=== PATIENT | male | born 1940 | race Caucasian/White ===

== ENCOUNTER → 2020-04-12 | Outpatient (CLI) | payer MEDICARE, BC ==
[~2020-04-12] MED LIST: CIPROFLOXACIN500 M1 PO; COLCRYS0.6 MG PO; CORGARD40 MG PO; DURAGESIC 12 M1 EACH TOP; PREDNISONE5 M1 PO; SYNTHROID25 MCG PO; SYNTHROID75 MCG PO; WELCHOL625 MG PO
== END ==
LOC: NM 08:59
DX: C61 Malignant neoplasm of prostate (principal); C79.51 Secondary malignant neoplasm of bone
CPT/HCPCS: 78306; A9503

== ENCOUNTER → 2020-04-26 | Outpatient (CLI) | payer MEDICARE, BC | LOC: CT 08:12 | DX: C61 Malignant neoplasm of prostate (principal); C79.51 Secondary malignant neoplasm of bone; N28.89 Other specified disorders of kidney and ureter; R91.8 Other nonspecific abnormal finding of lung field | CPT/HCPCS: 71260; Q9967 ==

== ENCOUNTER → 2020-07-13 | Outpatient (CLI) | payer MEDICARE, BC | LOC: CT 09:24 | DX: C61 Malignant neoplasm of prostate (principal); C79.51 Secondary malignant neoplasm of bone; N28.89 Other specified disorders of kidney and ureter; R91.1 Solitary pulmonary nodule | CPT/HCPCS: 71260; Q9967 ==

== ENCOUNTER → 2020-07-18 | Outpatient (CLI) | payer MEDICARE, BC | LOC: NM 08:00 | DX: C61 Malignant neoplasm of prostate (principal); C79.51 Secondary malignant neoplasm of bone | CPT/HCPCS: 78306; A9503 ==

== ENCOUNTER → 2020-12-06 | Outpatient (CLI) | payer MEDICARE, BC ==
[~2020-12-06] VITALS: Ht 177.8 cm; Wt 95.3 kg
== END ==
LOC: OPSV 08:30
DX: D64.9 Anemia, unspecified (principal)
CPT/HCPCS: 36430; 96375; J1940

== ENCOUNTER → 2020-12-15 | Outpatient (CLI) | payer MEDICARE, BC | LOC: NM 11-08 08:10 | DX: C61 Malignant neoplasm of prostate (principal); C79.51 Secondary malignant neoplasm of bone | CPT/HCPCS: 78306; A9503 ==

== ENCOUNTER → 2021-01-02 | Outpatient (CLI) | payer MEDICARE, BC | LOC: LAB 15:00 | DX: C61 Malignant neoplasm of prostate (principal); D64.9 Anemia, unspecified | CPT/HCPCS: 86850; 86900; 86901; 86920; J7050; P9016 ==

== ENCOUNTER → 2021-01-03 | Outpatient (CLI) | payer MEDICARE, BC ==
[~2021-01-03] VITALS: Ht 177.8 cm; Wt 95.3 kg
== END ==
LOC: OPSV 08:40
DX: C61 Malignant neoplasm of prostate (principal); D64.9 Anemia, unspecified
CPT/HCPCS: 36430; J1642; J1940; J7050; P9016

== ENCOUNTER → 2021-01-23 | Outpatient (CLI) | payer MEDICARE, BC | LOC: LAB 13:27 | DX: D50.9 Iron deficiency anemia, unspecified (principal) | CPT/HCPCS: 36415; 86850; 86870; 86900; 86901; 86920; 86922; P9016 ==

== ENCOUNTER 2021-02-03 03:04 | Emergency (ER) | payer MEDICARE, BC ==
[2021-02-03 04:00] LABS: HEMOGLOBIN 11.7 gm/dl (14.0-17.5); RED BLOOD COUNT 3.78 M/UL (4.20-5.50)
[2021-02-03 04:27] LABS: BUN/CREATININE RATIO 25 (0-10)
[2021-02-04] MEDS ORDERED: MORPHINE S20 MG/5 ML PO (19:39)
[2021-02-04] MEDS ORDERED: ROXANOL SO10 MG/5 ML PO (19:59)
== END 2021-02-03 06:40 | disposition home or self-care (01) ==
LOC: ER1 03:04
PROVIDERS: Family Medicine
DX: R06.00 Dyspnea, unspecified (principal); K21.9 Gastro-esophageal reflux disease without esophagitis; D69.6 Thrombocytopenia, unspecified; R91.1 Solitary pulmonary nodule; C79.51 Secondary malignant neoplasm of bone; I10 Essential (primary) hypertension
CPT/HCPCS: 71045; 80053; 82550; 82553; 83874; 83880; 84484; 85025; 85379; 93005; 99285; Q9967

== ENCOUNTER 2021-02-04 15:24 | Emergency (ER) | payer MEDICARE, BC ==
[2021-02-04 17:08] LABS: HEMOGLOBIN 11.1 gm/dl (14.0-17.5); RED BLOOD COUNT 3.6 M/UL (4.20-5.50); WHITE BLOOD COUNT 4.7 K/UL (4.5-11.0)
[2021-02-04 17:29] LABS: BUN/CREATININE RATIO 40 (0-10)
[2021-02-04] MEDS ORDERED: MORPHINE S20 MG/5 ML PO (19:39)
[2021-02-04] MEDS ORDERED: ROXANOL SO10 MG/5 ML PO (19:59)
== END 2021-02-04 20:25 | disposition home or self-care (01) ==
LOC: ER1 15:24
PROVIDERS: Student in an Organized Health Care Education/Training Program
DX: C79.51 Secondary malignant neoplasm of bone (principal); Z85.46 Personal history of malignant neoplasm of prostate; Z87.19 Personal history of other diseases of the digestive system
CPT/HCPCS: 80053; 81001; 85025; 93005; 96374; 96375; 96376; 99284; J1642; J2270; J2405; Q9967

== ENCOUNTER 2021-02-07 08:14 | Emergency (ER) | payer MEDICARE, BC ==
[~2021-02-07 08:14] MED LIST changes: +MORPHINE S20 MG/5 ML PO; +ROXANOL SO10 MG/5 ML PO
[2021-02-07 09:11] LABS: RED BLOOD COUNT 3.25 M/UL (4.20-5.50); WHITE BLOOD COUNT 4.2 K/UL (4.5-11.0)
[2021-02-07 09:47] LABS: BUN/CREATININE RATIO 35 (0-10)
== END 2021-02-07 13:22 | disposition short-term general hospital (02) ==
LOC: ER1 08:14
PROVIDERS: Emergency Medicine
DX: T78.40XA Allergy, unspecified, initial encounter (principal); D64.9 Anemia, unspecified; E87.1 Hypo-osmolality and hyponatremia; D69.6 Thrombocytopenia, unspecified; Z85.46 Personal history of malignant neoplasm of prostate; Z20.822 Contact with and (suspected) exposure to COVID-19; E83.51 Hypocalcemia; R20.0 Anesthesia of skin
CPT/HCPCS: 31500; 36430; 51702; 70450; 71045; 73030; 80053; 82550; 82553; 83605; 83874; 84484; 85025; 86900; 86901; 87040; 94002; 94760; 96374; 96375; 99284; 99285; J0171; J0461; J1200; J1335; J2270; J2405; J2930; J7030; J7040; P9037; U0002

== ENCOUNTER 2021-03-16 10:43 | Outpatient (CLI) | payer MEDICARE, BC ==
[~2021-03-16] VITALS: Ht 188 cm; Wt 113.4 kg
[2021-03-16 11:30] LABS: HEMOGLOBIN 6.4 gm/dl (14.0-17.5)
[2021-03-16] MEDS ORDERED: CORGARD40 MG PO (19:52)
[2021-03-16] MEDS ORDERED: ULORIC 40 MG TA40 MG PO (19:53)
[2021-03-16] MEDS ORDERED: COLCRYS0.6 MG PO (19:53)
[2021-03-16] MEDS ORDERED: PEPCID20 MG PO (19:54)
[2021-03-16] MEDS ORDERED: XGEVA 120120 MG/1.7 SC (19:54)
[2021-03-16] MEDS ORDERED: DEXAMETHASONE 44 MG PO (19:55)
[2021-03-16] MEDS ORDERED: XANAX0.5 MG PO (19:56)
[2021-03-16] MEDS ORDERED: NEURONTIN300 MG PO (19:57)
[2021-03-16] MEDS ORDERED: OXYCODONE HCL10 MG PO (19:57)
--- NOTE | 2021-03-17 01:53 | NUR ---
0100- ORIGINALLY PT WAS SUPPOSED TO BE TRANSPORTED HOME BY EMS. EMS CONTACTED AT APPROXIMATELY 2230. EMS NEVER PROVIDED ETA AND FAMILY/PT BECAME FRUSTRATED. CERAMICS ENGINEER CONTACTED MULTIPLE TIMES. SON INFORMED ME THAT PT WISHED TO BE TAKEN HOME BY PRIVATE VEHICLE. I QUESTIONED THE FAMILY ON IF THIS WAS APPROPRIATE AND IF THEY HAD ASSISTANCE TO GET HIM INTO THE HOUSE. THE SON ASSURED ME THAT HE HAD MULTIPLE PEOPLE AT HOME TO HELP THE PT GET INTO THE HOUSE AND GET SITUATED. I NOTIFIED THE CERAMICS ENGINEER TO NOTIFY EMS TO CANCEL TRANSPORT. PT ASSISTED TO PRIVATE VEHICLE BY ROBERTO ARCHER WITHOUT INCIDENT.
== END 2021-03-17 01:43 | disposition home or self-care (01) ==
LOC: OPSV 10:43 → MED SURG 4 16:42 → OPSV 03-17 01:43
PROVIDERS: Internal Medicine
DX: D64.9 Anemia, unspecified (principal)
CPT/HCPCS: 36415; 36430; 85014; 85018; 86850; 86870; 86900; 86901; 86902; 86905; 86920; 86922; J1642; P9016